=== PATIENT | female | born 1975 | race Caucasian/White ===

== ENCOUNTER 2020-12-16 13:18 | Outpatient (CLI) | payer OTHER ==
[~2020-12-16 13:18] MED LIST: CIPRO500 MG PO; SURFAK240 M1 PO; TYLENOL-CODEINE1 TAB PO; ZOFRAN ODT4 MG/UDTAB PO
== END 2020-12-16 13:23 | disposition home or self-care (01) ==
LOC: MAMO-SONO 13:18
PROVIDERS: ATTEND Obstetrics & Gynecology Gynecology
DX: N60.11 Diffuse cystic mastopathy of right breast (principal); N60.12 Diffuse cystic mastopathy of left breast; Z12.31 Encounter for screening mammogram for malignant neoplasm of breast

== ENCOUNTER 2021-11-17 10:02 | Outpatient (CLI) | payer OTHER | END 2021-11-17 10:20 | disposition home or self-care (01) | LOC: SONOGRAMA 10:02 | PROVIDERS: ATTEND Obstetrics & Gynecology Gynecology | DX: N60.11 Diffuse cystic mastopathy of right breast (principal); N60.12 Diffuse cystic mastopathy of left breast; M25.539 Pain in unspecified wrist; M70.10 Bursitis, unspecified hand ==

== ENCOUNTER → 2023-01-12 | Outpatient (CLI) | payer OTHER | END | disposition home or self-care (01) | LOC: MAMO-SONO 07:53 | PROVIDERS: ATTEND Obstetrics & Gynecology Gynecology | DX: N60.11 Diffuse cystic mastopathy of right breast (principal); N60.12 Diffuse cystic mastopathy of left breast; Z12.31 Encounter for screening mammogram for malignant neoplasm of breast ==